=== PATIENT | female | born 1940 | race Caucasian/White ===

== ENCOUNTER → 2017-05-08 | Outpatient (CLI) | payer OTHER ==
[~2017-05-08] MED LIST: ALBUTEROL0.63 MG/3 IH; AMLODIPINE BESY10 MG PO; ATORVASTATIN CA10 MG PO; CALCET TABLET1 EACH PO; CITALOPRAM HBR20 MG PO; DOXEPIN HCL10 MG PO; GABAPENTIN300 MG PO; GLIPIZIDE ER5 MG PO; HYDROCODON-ACE1 EA12 PO; HYDROCODON-ACE1 EAC9 PO; HYDROXYCHLOROQ200 MG PO; LEFLUNOMIDE20 MG PO; LISINOPRIL10 MG PO; METOPROLOL SUCC25 MG PO; NEXIUM40 MG PO; NORCO 7.5-3251 EACH PO; OXYBUTYNIN CHLOR5 MG PO; PRAMIPEXOLE D0.25 MG PO; ROPINIROLE HCL1 MG PO; SULFASALAZINE500 MG PO; SYMBICORT 80-10.2 GM INH
--- NOTE | 2017-05-08 12:05 | Diagnostic Imaging Report ---
PROCEDURE: CT CHEST WITHOUT CONTRAST CT scan of the chest WITHOUT intravenous contrast, using standard protocol. TECHNIQUE: The chest was scanned utilizing a multidetector helical scanner from the apex to the level of the adrenal glands. No IV contrast was administered. Coronal and sagittal multiplanar reformations were obtained. DLP: 530.9 mGy COMPARISON: Chest CT 06/30/2016 INDICATIONS: SHORT OF BREATH FINDINGS: Lines/tubes: None. Lungs and Airways: Stable scattered few pulmonary nodules, including a left upper lobe 4 mm nodule (series 3 image 20), and right apical 3 mm subpleural nodule (series 3 image 15). The lungs and airways are without focal abnormality demonstrated. Pleura: The pleural spaces are clear. Heart and mediastinum: No significant mediastinal, hilar or axillary lymphadenopathy is seen. The heart and pericardium are within normal limits. Main pulmonary artery measures 2.9 cm in diameter. Ascending aorta measures 3.5 cm in diameter. There are scattered aortic, three-vessel coronary artery, aortic valvular, and aortic and mitral annular calcifications. Abdomen: Limited views of the upper abdomen show no abnormality within the visualized liver, spleen, pancreas, or kidneys. The adrenal glands are normal. Bones: Partially visualized anterior cervical fusion hardware. Degenerative changes of the shoulders and spine, worse at T11-T12 with prominent posterior disc osteophyte complex. Soft tissues: Stable 1.1 cm and 1.4 cm fluid attenuating lesions in the right upper back likely represent sebaceous cysts. IMPRESSION: 1. No acute abnormalities. 2. Coronary artery disease. 3. Stable few small pulmonary nodules from 06/30/2016. Dictated by: Eduardo Villagran M.D. on 05/08/2017 at 12:15 Electronically approved by: Eduardo Villagran M.D. on 05/08/2017 at 12:15
[2017-05-08 12:45] LABS: ANION GAP 13.9 mmol/L (8-16); BLOOD UREA NITROGEN 21 mg/dL (7-26); BUN/CREATININE RATIO 23 (6-25); CALCIUM 8.8 mg/dL (8.4-10.2); CARBON DIOXIDE 29 mmol/L (22-29); CHLORIDE 97 mmol/L (98-107); EST GLOMERULAR FILTRATION RATE > 60 ML/MIN (60-); GLUCOSE 135 mg/dL (74-118); POTASSIUM 4.9 mmol/L (3.5-5.1); SODIUM 135 mmol/L (136-145)
== END ==
LOC: RESP 10:06
PROVIDERS: ATTEND Internal Medicine
DX: J44.9 Chronic obstructive pulmonary disease, unspecified (principal); J96.11 Chronic respiratory failure with hypoxia; E87.70 Fluid overload, unspecified; F17.200 Nicotine dependence, unspecified, uncomplicated
CPT/HCPCS: 36415; 71250; 80048; 93306; 94060; 94727; 94729

== ENCOUNTER 2017-07-15 08:23 | Inpatient (IN) | payer OTHER ==
[2017-07-14 15:40] LABS: BASOPHILS # (AUTO) 0.1 (0.0-0.1); BASOPHILS % 1.1 % (0.0-1.0); EOSINOPHILS # (AUTO) 0.1 (0.0-0.4); EOSINOPHILS % 1.5 % (0.0-6.0); HEMATOCRIT 31.3 % (34.2-44.1); HEMOGLOBIN 9.8 g/dL (12.0-16.0); LYMPHOCYTES # (AUTO) 1.8 (1.0-3.2); LYMPHOCYTES % 22.6 % (18.0-39.1); MEAN CORPUSCULAR HEMOGLOBIN 29.8 pg (28-32); MEAN CORPUSCULAR HGB CONC 31.3 g/dL (31-35); MEAN CORPUSCULAR VOLUME 95.1 fL (81-99); MONOCYTES # (AUTO) 1.2 (0.2-0.8); MONOCYTES % 15.2 % (4.4-11.3); NEUTROPHILS # (AUTO) 4.7 (2.1-6.9); NEUTROPHILS % 59.3 % (38.7-80.0); PLATELET COUNT 311 x10e3/uL (140-360); RED BLOOD COUNT 3.29 x10e6/uL (3.6-5.1); RED CELL DISTRIBUTION WIDTH 13.9 % (11.7-14.4)
[2017-07-14 16:44] LABS: ANION GAP 12.2 mmol/L (8-16); BLOOD UREA NITROGEN 7 mg/dL (7-26); BUN/CREATININE RATIO 10 (6-25); CALCIUM 9.4 mg/dL (8.4-10.2); CARBON DIOXIDE 27 mmol/L (22-29); CHLORIDE 96 mmol/L (98-107); CREATININE, SERUM 0.69 mg/dL (0.57-1.11); EST GLOMERULAR FILTRATION RATE > 60 ML/MIN (60-); GLUCOSE 172 mg/dL (74-118); POTASSIUM 4.2 mmol/L (3.5-5.1); SODIUM 131 mmol/L (136-145)
[~2017-07-15] VITALS: Ht 162.6 cm; Wt 92.5 kg
[~2017-07-15 08:23] MED LIST changes: +ALBUTEROL SULF 0.083% NEB SOLN 3 ML NEB ONE; +BACITRACIN 50,000 UNIT VIAL ONE; +BREO ELLIPTA INH; +CEFAZOLIN SOD 2 GM/D5W 50ML 50 ML IV ONE; +CELECOXIB 200 MG CAP ONE; +DEXAMETHASONE SOD PHOS 10 MG/1 ML VIAL ONE; +GABAPENTIN 300 MG CAP ONE; +HYDROXYCHLOROQ200 MG; +LEFLUNOMIDE10 MG; +MUPIROCIN 2% OINT 22 GM TUBE ONE; +OMEPRAZOLE40 MG; +ROPINIROLE HC0.25 MG PO; +ROPIVACAINE 246.25 MG, EPINEPHRINE HCL 1:1000 0.5 MG, CLONIDINE HCL 0.08 MG, KETOROLAC ... INJ ONE; +TRANEXAMIC ACID 1,000 MG/10 ML ML ONE
[2017-07-15] MEDS ORDERED: BUPIVACAINE 7.5MG/ML /DEXTROSE 82.5MG/ML 2 ML AMP INJ ONE (08:24)
--- OUTSIDE RECORDS SUMMARY | 2017-07-15 08:25 | XMS REPORT ---
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 Allergies, Adverse Reactions, Alerts This patient has no known allergies or adverse reactions. Medications This patient has no known medications. Results Test Description Test Time Test Comments Text Results Atomic Results Result Comments CT CHEST WO [place] [address] Patient Name: EAN JONES MR #: [id number] : 1940 Age/Sex: 76/F Req # : [id number] Adm Physician: Ordered by: JANAE NATARAJAN MD Report #: [id number] Location: RESP Room/Bed: Procedure: [id number] CT/CT CHEST WO Exam Date: 05/08/17 Exam Time: 1025 REPORT STATUS: Signed PROCEDURE: CT CHEST WITHOUT CONTRAST CT scan of the chest WITHOUT intravenous contrast, using standard protocol. TECHNIQUE: The chest was scanned utilizing a multidetector helical scanner from the apex to the level of the adrenal glands. No IV contrast was administered. Coronal and sagittal multiplanar reformations were obtained. DLP: 530.9 mGy COMPARISON: Chest CT 06/30/2016 INDICATIONS: SHORT OF BREATH FINDINGS: Lines/tubes: None. Lungs and Airways: Stable scattered few pulmonary nodules, including a left upper lobe 4 mm nodule (series 3 image 20), and right apical 3 mm subpleural nodule (series 3 image 15). The lungs and airways are without focal abnormality demonstrated. Pleura: The pleural spaces are clear. Heart and mediastinum: No significant mediastinal, hilar or axillary lymphadenopathy is seen. The heart and pericardium are within normal limits. Main pulmonary artery measures 2.9 cm in diameter. Ascending aorta measures 3.5 cm in diameter. There are scattered aortic, three-vessel coronary artery, aortic valvular, and aortic and mitral annular calcifications. Abdomen: Limited views of the upper abdomen show no abnormality within the visualized liver, spleen, pancreas, or kidneys. The adrenal glands are normal. Bones: Partially visualized anterior cervical fusion hardware. Degenerative changes of the shoulders and spine, worse at T11-T12 with prominent posterior disc osteophyte complex. Soft tissues: Stable 1.1 cm and 1.4 cm fluid attenuating lesions in the right upper back likely represent sebaceous cysts. IMPRESSION: 1. No acute abnormalities. 2. Coronary artery disease. 3. Stable few small pulmonary nodules from 2016. Dictated by: Eduardo Gibbs M.D. on 05/08/2017 at 12:15 Electronically approved by: Eduardo Gibbs M.D. on 05/08/2017 at 12:15 Dictated By: EDUARDO GIBBS MD 1215 Transcribed By: CARMELITA on 05/08/17 1215 COPY TO: JANAE NATARAJAN MD CHEST 2 VIEWS [place] [address] Patient Name: EAN JONES MR #: [id number] : 1940 Age/Sex: 76/F Req # : [id number] Adm Physician: Ordered by: IRENE RUIZ MD Report #: [id number] Location: OR Room/Bed: Procedure: [id number] DX/CHEST 2 VIEWS Exam Date: Exam Time: REPORT STATUS: Signed PROCEDURE: X-RAY CHEST, TWO VIEWS COMPARISON: 2016. INDICATIONS: PRE-OPERATIVE CHEST X-RAY FOR HIP INJECTION FINDINGS : Lungs are main well inflated. No focal consolidation, pleural effusion , or pneumothorax. Stable cardiomediastinal contour with tortuosity and atherosclerotic calcification of the aortic arch. No pulmonary edema. No acute osseous abnormality. Cervical spine fusion hardware partially visualized. CONCLUSION: No acute thoracic abnormality. Dictated by: Irene Moran M.D. on 01/06/2017 at 12:10 Electronically approved by: Irene oMran M.D. on 01/06/2017 at 12:10 Dictated By : IRENE MORAN MD 1210 Transcribed By: CARMELITA on 01/06/17 1210 COPY TO: IRENE RUIZ MD
[2017-07-15] MEDS ORDERED: SUGAMMADEX SODIUM 200 MG/2 ML VIAL IV ONE (09:37)
[2017-07-15] MEDS: SODIUM CHLORIDE 0.9% 1000ML 1,000 ML IV SCH ×2 (10:16→20:16)
[2017-07-15] MEDS ORDERED: ONDANSETRON HCL INJ 2 MG/ML VIAL IV PRN (10:30)
[2017-07-15] MEDS ORDERED: DIPHENHYDRAMINE HCL INJ 50 MG/ML VIAL IM/IV PRN (10:30)
[2017-07-15] MEDS ORDERED: ACETAMINOPHEN 650 MG SUPP PR PRN (10:30)
[2017-07-15] MEDS ORDERED: DOCUSATE SODIUM 100 MG CAP PO PRN (10:30)
[2017-07-15] MEDS ORDERED: KETOROLAC TROMETHAMINE 30 MG/ML VIAL IV PRN (10:30)
[2017-07-15] MEDS ORDERED: ZOLPIDEM TARTRATE 5 MG TAB PO PRN (10:30)
[2017-07-15] MEDS ORDERED: PROMETHAZINE HCL (IM) 25 MG/ML VIAL INJ PRN (10:30)
[2017-07-15] MEDS ORDERED: HYDROCODONE/APAP 7.5MG-325MG 1 EA TAB PO PRN (10:30)
--- NOTE | 2017-07-15 11:19 | Diagnostic Imaging Report ---
PROCEDURE:X-RAY PELVIS, AP VIEW COMPARISON:None. INDICATIONS:S/P LEFT TOTAL HIP ARTHROPLASTY. FINDINGS: One a portable AP view of the pelvis were obtained after left total hip arthroplasty. Hardware components of a left total hip arthroplasty are in anatomic alignment. No evidence of fracture or other complication. Surgical skin rafael and foci of subcutaneous air, consistent with recent surgery. Degenerative changes affect the right hip. CONCLUSION: Status post left total hip arthroplasty. No evidence of fracture or other complication. Dictated by: Alvarez Hugehs M.D. on 07/15/2017 at 11:21 Electronically approved by: Alvarez Hughes M.D. on 07/15/2017 at 11:21
--- NOTE | 2017-07-15 11:36 | Operative Report ---
DATE OF PROCEDURE: July 15, 2017 MERCHANDISING ASSISTANT: Paco Miller PA-C The patient was brought to the operating room for induction of anesthesia. Throughout this case, my PA's assistance was necessary for retraction of soft tissue and positioning of the extremity. This allows for efficient and technically successful execution of the operation and is considered medically necessary. PREOPERATIVE DIAGNOSIS: Osteoarthritis, left hip. POSTOPERATIVE DIAGNOSIS: Osteoarthritis, left hip. PROCEDURE: Left total hip arthroplasty. INDICATIONS: The patient is a medically frail, 76-year-old lady who has advanced arthritis in her left hip. She has multiple musculoskeletal aches and pains. We have discussed the findings and options. She also has COPD and chronic eczema. She is considered a higher than average surgical risk. She is highly motivated to proceed with a left total hip replacement. The risks and benefits have been discussed. She states she accepts the higher risk potential and wishes to proceed. DESCRIPTION OF PROCEDURE: The patient was brought into the operating room, and spinal anesthetic was attempted. This did not appear to be completely successful. She was placed under general anesthetic. She received prophylactic antibiotics and tranexamic acid in the holding area. She was positioned in the right lateral decubitus position. Her left hip was prepped and draped in a sterile manner. A preoperative time out was performed. A posterior approach was made to the left hip. Abundant subcutaneous adipose tissue was encountered with subcutaneous edema. The posterior capsule and rotators were released. The hip was dislocated, and an oscillating saw was used to resect the femoral head. Complete loss of articular cartilage was noted. Acetabular retractors were placed. Labral remnants were removed. The true floor of the acetabulum was established with a 46-mm reamer. The socket was then sequentially reamed. A 51-mm reamer accomplished hemispherical bleeding cancellous bone. A [employer] OsseoTi 52 mm outer diameter socket was then impacted into place. Fixation was augmented with a single 25-mm screw placed into the ilium. The hip had been thoroughly irrigated with a shower-tip pulsatile lavage. A highly crosslinked polyethylene liner with a 36 mm inner diameter was then seated into place. Care was taken to make sure that there was no evidence of soft-tissue interposition. A portion of a premixed pericapsular AC injection was placed around the socket. The socket was packed with moistly soaked lap sponge, and attention was directed towards the proximal femur. A box cutting osteotome and taper pin reamer were used to establish entry into the femoral canal. The [employer] Taperloc broaches were then impacted. A #11 stem had good canal fill and stability for trial reductions. A -3 head was felt to provide optimal soft-tissue balancing and stability. The trial implants were removed. The hip was further irrigated with copious amounts of sterile saline using a pulsatile lavage. The remainder of the injection was placed into the soft tissue. The implants were seated, and a final reduction was performed. The posterior capsule was repaired with interrupted #2 Ethibond. The tensor fascia and gluteal fascia were closed with #2 Ethibond. The skin was closed with subcuticular Vicryl and rafael. A sterile Prevena wound VAC was applied. The patient was extubated and transported to the recovery room in stable condition. Blood loss was approximately 75 mL. At the end of the procedure, all needle and sponge counts were correct. Job#: [id number]
[2017-07-15] MEDS: ACETAMINOPHEN 1000 MG/100 ML IV SCH ×2 (12:34→18:06)
[2017-07-15 12:38] VITALS: BP 139/64
[2017-07-15 12:48] VITALS: BP 139/64
[2017-07-15 12:51] VITALS: BP 139/64
[2017-07-15] MEDS ORDERED: ALBUTEROL0.63 MG/3 INH (13:21)
[2017-07-15] MEDS ORDERED: ALBUTEROL SULF 0.083% NEB SOLN 3 ML NEB INH PRN (13:30)
[2017-07-15] MEDS ORDERED: CEFAZOLIN SOD 1 GM/NS 50ML 50 ML IV SCH (14:00)
[2017-07-15] MEDS ORDERED: ROPINIROLE HCL 0.25 MG TAB PO SCH (15:00)
[2017-07-15] MEDS: ROPINIROLE HCL 2 MG TAB PO SCH ×2 (15:00→19:23)
[2017-07-15] MEDS ORDERED: CELECOXIB 100 MG CAP PO SCH (17:00)
[2017-07-15] MEDS: CEFAZOLIN SOD 1 GM VIAL IV SCH (17:24)
[2017-07-15 17:26] VITALS: BP 159/77
[2017-07-15] MEDS ORDERED: SEVOFLURANE INHAL SOLN 250 ML PEN BTL ONE (17:41)
[2017-07-15] MEDS ORDERED: ONDANSETRON HCL INJ 2 MG/ML VIAL ONE (17:41)
[2017-07-15] MEDS ORDERED: LIDOCAINE HCL 2% LOCAL INJ 5 ML SDV VIAL INJ ONE (17:41)
[2017-07-15] MEDS ORDERED: PROPOFOL IV EMULSION 10 MG/ML 20 ML VIAL ONE (17:41)
[2017-07-15] MEDS ORDERED: ACETAMINOPHEN 1000 MG/100 ML IV ONE (17:41)
[2017-07-15] MEDS: GABAPENTIN 300 MG CAP PO SCH (18:06)
[2017-07-15] MEDS: CELECOXIB 200 MG CAP PO SCH (18:06)
[2017-07-15] MEDS: ASPIRIN 325 MG TAB PO SCH (18:06)
[2017-07-15] MEDS: PANTOPRAZOLE SOD 40 MG TABEC PO SCH (18:06)
[2017-07-15] MEDS: HYDROXYCHLOROQUINE SULFATE 200 MG TAB PO SCH (18:06)
[2017-07-15] MEDS ORDERED: MIDAZOLAM HCL 2 MG/2 ML VIAL ONE (18:19)
[2017-07-15] MEDS ORDERED: KETAMINE HCL INJ 50 MG/ML 10 ML VIAL ONE (18:19)
[2017-07-15] MEDS: HYDROCODONE/APAP 5MG-325MG TAB PO PRN ×2 (19:32→20:12)
[2017-07-15 20:00] VITALS: BP 126/60
[2017-07-15] MEDS ORDERED: LISINOPRIL 10 MG TAB PO SCH (21:00)
[2017-07-15] MEDS ORDERED: ATORVASTATIN 20 MG TAB PO SCH (21:00)
[2017-07-15] MEDS ORDERED: ATORVASTATIN 10 MG TAB PO SCH (21:00)
[2017-07-15] MEDS ORDERED: DOXEPIN HCL 10 MG CAP PO SCH (21:00)
[2017-07-15] MEDS: METOPROLOL SUCCINATE 25 MG TAB XL PO SCH (21:35)
[2017-07-15 21:57] VITALS: BP 126/60
[2017-07-16] VITALS: BP 160/68
[2017-07-16] MEDS: CEFAZOLIN SOD 1 GM VIAL IV SCH ×2 (01:00→08:34)
[2017-07-16 04:30] VITALS: BP 148/69
[2017-07-16] MEDS: ACETAMINOPHEN 1000 MG/100 ML IV SCH ×2 (05:57)
[2017-07-16] MEDS: SODIUM CHLORIDE 0.9% 1000ML 1,000 ML IV SCH (06:16)
[2017-07-16 07:03] LABS: HEMATOCRIT 26.6 % (34.2-44.1); HEMOGLOBIN 8.3 g/dL (12.0-16.0)
[2017-07-16] MEDS: CELECOXIB 200 MG CAP PO SCH (08:34)
[2017-07-16] MEDS: GABAPENTIN 300 MG CAP PO SCH (08:34)
[2017-07-16] MEDS: ASPIRIN 325 MG TAB PO SCH (08:34)
[2017-07-16] MEDS: METOPROLOL SUCCINATE 25 MG TAB XL PO SCH (08:34)
[2017-07-16] MEDS: HYDROXYCHLOROQUINE SULFATE 200 MG TAB PO SCH (08:34)
[2017-07-16] MEDS: ROPINIROLE HCL 2 MG TAB PO SCH (08:34)
[2017-07-16] MEDS: PANTOPRAZOLE SOD 40 MG TABEC PO SCH (08:34)
[2017-07-16 08:36] VITALS: BP 158/72
[2017-07-16] MEDS ORDERED: CITALOPRAM HYDROBROMIDE 20 MG TAB PO SCH (09:00)
[2017-07-16] MEDS ORDERED: GLIPIZIDE 5 MG TAB ER PO SCH (09:00)
[2017-07-16] MEDS ORDERED: BREO-ELLIPTA INH SCH (09:00)
[2017-07-16] MEDS ORDERED: LISINOPRIL 20 MG TAB PO SCH (09:00)
[2017-07-16] MEDS ORDERED: BREO ELLIPTA INH SCH (09:00)
[2017-07-16] MEDS ORDERED: ASPIRIN325 MG PO (09:09)
[2017-07-16] MEDS ORDERED: ACETAMINOPHEN 1000 MG/100 ML IV PRN (10:30)
== END 2017-07-16 15:31 | disposition home or self-care (01) | DRG 470 ==
LOC: OR 08:23 → MED/SURG 12:15
PROVIDERS: ADMIT Specialist; ATTEND Specialist
PROC: 0SRB04A Replacement of Left Hip Joint with Ceramic on Polyethylene Synthetic Substitute, Uncemented, Open Approach (ICD-10-PCS; principal; 2017-07-15 08:45)
DX: M16.12 Unilateral primary osteoarthritis, left hip (principal); E11.40 Type 2 diabetes mellitus with diabetic neuropathy, unspecified; M06.9 Rheumatoid arthritis, unspecified; I10 Essential (primary) hypertension; Z79.4 Long term (current) use of insulin
CPT/HCPCS: 36415; 72170; 80048; 82948; 85014; 85018; 85025; 86850; 86900; 86920; 93005; J0171; J0690; J1100; J1885; J2001; J2250; J2405; J2795